=== PATIENT | female | born 1950 | race Caucasian/White ===

== ENCOUNTER → 2017-04-16 | Outpatient (CLI) | payer MEDICARE, BC ==
--- NOTE | ~2017-04-16 | ECHO ---
Transthoracic Echocardiography Report (TTE) Demographics Patient Name MINDY BRODERICK Date of Study 04/16/2017 Patient Number [id number] Visit Number [id number] Date of 1950 Room Number Accession Number [id number] Gender Female Age 66 year(s) Referring Rusty Kerr MD Refrigeration Manager Valentina Levine [facility], Physician RVT Physician Interpreting Ariadna Pearce Vendor Management Associate Physician MD Supervising Ordering Physician Rusty Kerr MD, MD/P Nurse Stress Brine Maker Conclusions Contractility Score Summary Normal Left Ventricular contractility was noted. Summary Technically difficult exam. Normal LV/RV size and systolic function. The estimated left ventricular ejection fraction is 60%. Mild concentric left ventricular hypertrophy. Diastolic assessment reveals Grade I diastolic dysfunction. The left atrium is mildly dilated. No significant valvular abnormalities. Procedure Type of Study TTE procedure:2D Echocardiogram. Procedure Date Date: 04/16/2017 Start: 01:22 PM Study Location: Echo Lab Technical Quality: Fair due to body habitus. Indications:Abnormal ECG and pre surgical clearance. Appropriate Use Criteria: 9 Patient Status: Routine HR: 78 bpm BP: 189/83 mmHg M-Mode/2D Measurements LV Diastolic Dimension: 3.51 cm LV Systolic Dimension: 1.58 cm LV Septum Diastolic: 1.28 cm LV PW Diastolic: 1.2 cm AO Root Dimension: 2.6 cm Cardiac Output: 5.97 l/min AV Cusp Separation: 1.7 cm RV Diastolic Dimension: 3.78 cm LA volume: 99 ml LVOT: 1.9 cm RV Base: 3.89 cm LVOT VTI: 27 cm RV Mid: 3.64 cm LV Stroke volume: 76.51 ml TAPSE: 2.66 cm TDI-S': 15.8 cm/s Doppler Measurements AV Peak Velocity: 1.69 m/s MV Peak E-Wave: 0.71 m/s AV Peak Gradient: 11.42 mmHg MV Peak A-Wave: 0.95 m/s AV Mean Gradient: 7 mmHg MV E/A Ratio: 0.75 LVOT Peak Velocity: 1.29 m/s MV P1/2t: 63 msec TR Gradient:27.46 mmHg PV Peak Velocity: 0.99 m/s Estimated RAP:8 mmHg PV Peak Gradient: 3.94 mmHg Estimated RVSP: 35 mmHg Estimated PASP: 35.46 mmHg E' Septal Velocity: 0.05 m/s A' Septal Velocity: 0.1 m/s E' Lateral Velocity: 0.08 m/s A' Lateral Velocity: 0.12 m/s Findings Left Ventricle Mild concentric left ventricular hypertrophy. Diastolic assessment reveals Grade I diastolic dysfunction. Right Ventricle Normal right ventricular size and function. Left Atrium The left atrium is mildly dilated. Right Atrium The right atrium is not dilated. IVC imaging is consistent with normal RA pressures. Mitral Valve Trivial mitral regurgitation by color Doppler. Aortic Valve Normal aortic valve structure and function. Tricuspid Valve Trivial tricuspid regurgitation by color Doppler. The pulmonary pressure (RVSP) is 35.46 mmHg. Pulmonic Valve Normal pulmonic valve structure and function. Pericardial Effusion No evidence of pericardial effusion. Miscellaneous Visualized portions of the aortic root and ascending aorta appear normal in size. Pleural Effusion No evidence of pleural effusion. Contractility Score LV regional wall motion:(0-Non visualized 1-Normal 2-Hypokinesis 3-Akinesis 4-Dyskinesis 5-Aneurysm) Signature dtt: CHELE ORTIZ dtd: 04/16/17 1322 Physician Self Edit
== END | disposition disaster alternative care site (69) ==
LOC: GCAR 12:20
DX: Z01.818 Encounter for other preprocedural examination (principal); I51.7 Cardiomegaly; R94.31 Abnormal electrocardiogram [ECG] [EKG]